=== PATIENT | female | born 1945 | race Caucasian/White ===

== ENCOUNTER 2018-05-10 12:39 | Inpatient (IN) | payer MEDICARE ==
[~2018-05-10] VITALS: Ht 162.6 cm; Wt 72.8 kg
[2018-05-10] MEDS ORDERED: HYDROcodone/APAP 5/325 TABLET ONE ×2 (12:54→17:17)
[2018-05-10] MEDS ORDERED: ONDANSETRON ODT 4 MG ONE (12:55)
[2018-05-10] MEDS ORDERED: ONDANSETRON ODT 4 MG PO ONE (13:00)
[2018-05-10] MEDS ORDERED: HYDROcodone/APAP 5/325 TABLET PO ONE ×2 (13:00→15:00)
[2018-05-10] MEDS ORDERED: DULO30CA2 PO (13:07)
[2018-05-10] MEDS ORDERED: PRED5TAB PO (13:07)
[2018-05-10] MEDS ORDERED: LEVO100T PO (13:07)
[2018-05-10] MEDS ORDERED: OMEP-110 PO (13:07)
[2018-05-10] MEDS ORDERED: PREG25CA PO (13:07)
[2018-05-10 15:31] LABS: BASOPHILS # (AUTO) 0.01 x10^3/uL (0-0.1); BASOPHILS % (AUTO) 0 % (0-1); EOSINOPHILS # (AUTO) 0.11 x10^3/uL (0-0.4); EOSINOPHILS % (AUTO) 2 % (1-7); LYMPHOCYTES # (AUTO) 0.89 x10^3/uL (1-3.4); LYMPHOCYTES % (AUTO) 13 % (22-44); MD NO; MEAN CORPUSCULAR HEMOGLOBIN 22.4 pg (27.0-34.8); MEAN CORPUSCULAR HGB CONC 31.7 g/dL (32.4-35.8); MEAN CORPUSCULAR VOLUME 70.6 fL (80-100); MEAN PLATELET VOLUME 7.8 fL (7.4-10.4); MONOCYTES # (AUTO) 0.31 x10^3/uL (0.2-0.8); MONOCYTES % (AUTO) 4 % (2-9); NEUTROPHILS % (AUTO) 81 % (42-75); PLATELET COUNT 425 x10^3/uL (130-400); RED BLOOD COUNT 4.29 x10^6/uL (3.82-5.3); RED CELL DISTRIBUTION WIDTH 21.2 % (9.6-15.2)
[2018-05-10 15:36] LABS: ANION GAP 10 mmol/L (5-15); CALCIUM 8.6 mg/dL (8.5-10.1); CHLORIDE 105 mmol/L (98-107); CREATININE 0.67 mg/dL (0.55-1.02)
[2018-05-10] MEDS ORDERED: SODIUM CHLORIDE FLUSH 10ML SYR IVF PRN (16:00)
[2018-05-10] MEDS ORDERED: POLYETHYLENE GLYCOL 17 GM PACKET PO PRN (16:30)
[2018-05-10] MEDS ORDERED: ONDANSETRON ODT 4 MG PO PRN (16:30)
[2018-05-10] MEDS ORDERED: ONDANSETRON 2MG/ML, 2ML IVPush PRN (16:30)
[2018-05-10] MEDS ORDERED: LABETALOL 5MG/ML, 20ML IVPush PRN (16:30)
[2018-05-10 17:08] LABS: FREE T4 (FREE THYROXINE) 1.22 ng/dL (0.76-1.46)
[2018-05-10] MEDS ORDERED: ACETAMINOPHEN 325 MG TABLET PO PRN (18:00)
[2018-05-10] MEDS: SODIUM CHLORIDE 0.9% 1,000 ML IV SCH (18:41)
[2018-05-10 19:50] VITALS: BP 149/81
[2018-05-10] MEDS: PREGABALIN 25 MG CAPSULE PO SCH (19:51)
[2018-05-11 00:57] VITALS: BP 147/79
[2018-05-11] MEDS: KETOROLAC 30 MG/1 ML IV PRN (02:21)
[2018-05-11] MEDS: SODIUM CHLORIDE 0.9% 1,000 ML IV SCH ×2 (04:51→21:00)
[2018-05-11 05:59] LABS: BASOPHILS % (AUTO) 0 % (0-1); EOSINOPHILS % (AUTO) 2 % (1-7); LYMPHOCYTES # (AUTO) 0.76 x10^3/uL (1-3.4); LYMPHOCYTES % (AUTO) 12 % (22-44); MD NO; MEAN CORPUSCULAR HEMOGLOBIN 22.7 pg (27.0-34.8); MEAN CORPUSCULAR HGB CONC 31.8 g/dL (32.4-35.8); MEAN CORPUSCULAR VOLUME 71.3 fL (80-100); MEAN PLATELET VOLUME 7.7 fL (7.4-10.4); MONOCYTES # (AUTO) 0.22 x10^3/uL (0.2-0.8); MONOCYTES % (AUTO) 4 % (2-9); NEUTROPHILS # (AUTO) 5.06 x10^3/uL (1.8-6.8); NEUTROPHILS % (AUTO) 82 % (42-75); PLATELET COUNT 367 x10^3/uL (130-400); RED BLOOD COUNT 4.04 x10^6/uL (3.82-5.3); RED CELL DISTRIBUTION WIDTH 20.3 % (9.6-15.2)
[2018-05-11 06:06] LABS: ALANINE AMINOTRANSFERASE 12 U/L (12-78); ALBUMIN 2.2 g/dL (3.4-5.0); ANION GAP 8 mmol/L (5-15); CALCIUM 8.3 mg/dL (8.5-10.1); CHLORIDE 106 mmol/L (98-107)
[2018-05-11 06:08] LABS: ALKALINE PHOSPHATASE 65 U/L (45-117); BILIRUBIN,TOTAL 0.3 mg/dL (0.2-1.0); CREATININE 0.76 mg/dL (0.55-1.02)
[2018-05-11 07:00] VITALS: BP 158/76
[2018-05-11] MEDS: SENNA/DOCUSATE TABLET PO SCH (07:47)
[2018-05-11] MEDS: METHOCARBAMOL 500 MG TABLET PO PRN ×2 (07:53→22:30)
[2018-05-11] MEDS: DULOXETINE 30 MG CAPSULE.DR PO SCH (07:53)
[2018-05-11] MEDS: PREGABALIN 25 MG CAPSULE PO SCH ×3 (07:53→19:37)
[2018-05-11] MEDS: OMEPRAZOLE 20 MG CAPSULE.DR PO SCH (07:54)
[2018-05-11 13:00] VITALS: BP 128/71
[2018-05-11 19:55] VITALS: BP 134/67
[2018-05-11 23:02] LABS: MICROSCOPIC NOT IND
[2018-05-11 23:06] LABS: CULTURE INDICATED? NO
[2018-05-12 02:36] VITALS: BP 129/64
[2018-05-12 06:50] VITALS: BP 152/81
[2018-05-12] MEDS: SENNA/DOCUSATE TABLET PO SCH (08:11)
[2018-05-12] MEDS: OMEPRAZOLE 20 MG CAPSULE.DR PO SCH (08:11)
[2018-05-12] MEDS: DULOXETINE 30 MG CAPSULE.DR PO SCH (08:12)
[2018-05-12] MEDS: KETOROLAC 30 MG/1 ML IV PRN ×3 (08:12→20:39)
[2018-05-12] MEDS: PREGABALIN 25 MG CAPSULE PO SCH ×3 (08:12→20:04)
[2018-05-12] MEDS: METHOCARBAMOL 500 MG TABLET PO PRN ×2 (08:12→16:19)
[2018-05-12 08:46] LABS: MEAN CORPUSCULAR HEMOGLOBIN 21.9 pg (27.0-34.8); MEAN CORPUSCULAR HGB CONC 30.8 g/dL (32.4-35.8); RED BLOOD COUNT 4.51 x10^6/uL (3.82-5.3)
[2018-05-12 08:54] LABS: ALANINE AMINOTRANSFERASE 12 U/L (12-78); ALBUMIN 2.2 g/dL (3.4-5.0); ANION GAP 7 mmol/L (5-15); CALCIUM 8.4 mg/dL (8.5-10.1); CHLORIDE 102 mmol/L (98-107); CREATININE 0.62 mg/dL (0.55-1.02)
[2018-05-12 08:57] LABS: ALKALINE PHOSPHATASE 71 U/L (45-117); BILIRUBIN,TOTAL 0.3 mg/dL (0.2-1.0); TOTAL PROTEIN 7.6 g/dL (6.4-8.2)
[2018-05-12] MEDS: HEPARIN 5,000 UNITS/ML, 1ML SQ SCH ×2 (09:00→16:04)
[2018-05-12 09:04] LABS: MEAN PLATELET VOLUME 7.8 fL (7.4-10.4); PLATELET COUNT 461 x10^3/uL (130-400)
[2018-05-12 09:08] LABS: BASOPHILS % (AUTO) 0 % (0-1); EOSINOPHILS # (AUTO) 0.09 x10^3/uL (0-0.4); EOSINOPHILS % (AUTO) 1 % (1-7); LYMPHOCYTES # (AUTO) 0.75 x10^3/uL (1-3.4); LYMPHOCYTES % (AUTO) 7 % (22-44); MD SCAN; MONOCYTES # (AUTO) 0.26 x10^3/uL (0.2-0.8); MONOCYTES % (AUTO) 2 % (2-9); NEUTROPHILS # (AUTO) 9.55 x10^3/uL (1.8-6.8); NEUTROPHILS % (AUTO) 90 % (42-75)
[2018-05-12] MEDS ORDERED: OMNIPAQUE 350 MG/ML, 100ML BOTTLE ONE (09:42)
[2018-05-12] MEDS ORDERED: HEPARIN 5,000 UNITS/ML, 1ML IV ONE (12:30)
[2018-05-12] MEDS: HEPARIN 25,000 UNITS/500ML PMX 500 ML IV PRN (13:04)
[2018-05-12 14:00] VITALS: BP 188/84
[2018-05-12 15:22] VITALS: BP 150/86
[2018-05-12 18:25] VITALS: BP 166/80
[2018-05-12 19:26] VITALS: BP 158/83
[2018-05-12] MEDS: HEPARIN 5,000 UNITS/ML, 1ML IV PRN (20:02)
[2018-05-13] MEDS: HEPARIN 5,000 UNITS/ML, 1ML SQ SCH ×4 (01:00→23:39)
[2018-05-13 01:15] VITALS: BP 149/78
[2018-05-13] MEDS: METHOCARBAMOL 500 MG TABLET PO PRN ×3 (01:24→20:44)
[2018-05-13] MEDS: HEPARIN 5,000 UNITS/ML, 1ML IV PRN ×4 (02:57→23:30)
[2018-05-13] MEDS: KETOROLAC 30 MG/1 ML IV PRN ×2 (04:05→20:43)
[2018-05-13] MEDS: LEVOTHYROXINE 100 MCG TABLET PO SCH (05:41)
[2018-05-13 06:50] VITALS: BP 154/67
[2018-05-13] MEDS: SENNA/DOCUSATE TABLET PO SCH (07:11)
[2018-05-13 09:09] LABS: BASOPHILS % (AUTO) 0 % (0-1); EOSINOPHILS # (AUTO) 0.08 x10^3/uL (0-0.4); EOSINOPHILS % (AUTO) 1 % (1-7); LYMPHOCYTES # (AUTO) 0.73 x10^3/uL (1-3.4); LYMPHOCYTES % (AUTO) 8 % (22-44); MD NO; MEAN CORPUSCULAR HEMOGLOBIN 21.9 pg (27.0-34.8); MEAN CORPUSCULAR HGB CONC 31.2 g/dL (32.4-35.8); MEAN CORPUSCULAR VOLUME 70.3 fL (80-100); MEAN PLATELET VOLUME 7.6 fL (7.4-10.4); MONOCYTES # (AUTO) 0.18 x10^3/uL (0.2-0.8); MONOCYTES % (AUTO) 2 % (2-9); NEUTROPHILS # (AUTO) 8.54 x10^3/uL (1.8-6.8); NEUTROPHILS % (AUTO) 90 % (42-75); PLATELET COUNT 432 x10^3/uL (130-400); RED BLOOD COUNT 4.59 x10^6/uL (3.82-5.3); RED CELL DISTRIBUTION WIDTH 20.8 % (9.6-15.2)
[2018-05-13 09:13] LABS: ANION GAP 11 mmol/L (5-15); CALCIUM 8.8 mg/dL (8.5-10.1); CHLORIDE 100 mmol/L (98-107); CREATININE 0.64 mg/dL (0.55-1.02)
[2018-05-13] MEDS: PREGABALIN 25 MG CAPSULE PO SCH ×3 (09:39→20:44)
[2018-05-13] MEDS: OMEPRAZOLE 20 MG CAPSULE.DR PO SCH (09:40)
[2018-05-13] MEDS: DULOXETINE 30 MG CAPSULE.DR PO SCH (09:41)
[2018-05-13] MEDS ORDERED: LIDOCAINE-MPF 1%, 5ML ONE (10:06)
[2018-05-13 13:21] LABS: SYN CELLS COUNTED 11050
[2018-05-13 14:30] VITALS: BP 145/76
[2018-05-13] MEDS: HEPARIN 25,000 UNITS/500ML PMX 500 ML IV PRN ×2 (15:00→23:31)
[2018-05-13 19:30] VITALS: BP 162/78
[2018-05-14 00:46] VITALS: BP 123/74
[2018-05-14] MEDS: LEVOTHYROXINE 100 MCG TABLET PO SCH (05:32)
[2018-05-14 07:10] VITALS: BP 129/79
[2018-05-14] MEDS: HEPARIN 5,000 UNITS/ML, 1ML SQ SCH ×2 (07:19→07:20)
[2018-05-14] MEDS: DULOXETINE 30 MG CAPSULE.DR PO SCH (09:05)
[2018-05-14] MEDS: PREGABALIN 25 MG CAPSULE PO SCH ×3 (09:06→21:06)
[2018-05-14] MEDS: OMEPRAZOLE 20 MG CAPSULE.DR PO SCH (09:06)
[2018-05-14] MEDS: SENNA/DOCUSATE TABLET PO SCH (09:06)
[2018-05-14] MEDS: KETOROLAC 30 MG/1 ML IV PRN (11:39)
[2018-05-14] MEDS: RIVAROXABAN 15 MG TABLET PO SCH ×2 (11:39→17:57)
[2018-05-14] MEDS ORDERED: RIVA15TA PO (13:54)
[2018-05-14] MEDS ORDERED: PRED5TAB PO (13:54)
[2018-05-14 14:13] VITALS: BP 117/68
[2018-05-14 19:19] VITALS: BP 130/73
[2018-05-15 02:38] VITALS: BP 148/78
[2018-05-15] MEDS: LEVOTHYROXINE 100 MCG TABLET PO SCH (04:42)
[2018-05-15 06:52] VITALS: BP 145/76
[2018-05-15] MEDS: RIVAROXABAN 15 MG TABLET PO SCH ×2 (09:09→15:48)
[2018-05-15] MEDS: SENNA/DOCUSATE TABLET PO SCH (09:10)
[2018-05-15] MEDS: PREGABALIN 25 MG CAPSULE PO SCH ×2 (09:10→15:48)
[2018-05-15] MEDS: DULOXETINE 30 MG CAPSULE.DR PO SCH (09:10)
[2018-05-15] MEDS: OMEPRAZOLE 20 MG CAPSULE.DR PO SCH (09:10)
[2018-05-15 12:17] VITALS: BP 143/74
[2018-06-04] MEDS ORDERED: RIVAROXABAN 20 MG TABLET PO SCH (09:00)
== END 2018-05-15 17:19 | DRG 564 ==
LOC: ED 15:37 → EDIP 15:53 → 3NE 18:02
PROVIDERS: ADMIT Hospitalist; ATTEND Hospitalist
PROC: 0S9C3ZZ Drainage of Right Knee Joint, Percutaneous Approach (ICD-10-PCS; principal; 2018-05-13)
DX: M25.461 Effusion, right knee (principal); I26.99 Other pulmonary embolism without acute cor pulmonale; J96.01 Acute respiratory failure with hypoxia; E87.1 Hypo-osmolality and hyponatremia; M48.54XA Collapsed vertebra, not elsewhere classified, thoracic region, initial encounter for fracture; E44.0 Moderate protein-calorie malnutrition; G89.29 Other chronic pain; Z88.8 Allergy status to other drugs, medicaments and biological substances; D50.0 Iron deficiency anemia secondary to blood loss (chronic); H81.09 Meniere's disease, unspecified ear; K21.9 Gastro-esophageal reflux disease without esophagitis; R62.7 Adult failure to thrive; S40.019A Contusion of unspecified shoulder, initial encounter; W18.39XA Other fall on same level, initial encounter; Y93.89 Activity, other specified; Y92.89 Other specified places as the place of occurrence of the external cause; Y99.8 Other external cause status; F32.9 Major depressive disorder, single episode, unspecified; M19.90 Unspecified osteoarthritis, unspecified site; S83.91XA Sprain of unspecified site of right knee, initial encounter; Z90.710 Acquired absence of both cervix and uterus; Z82.49 Family history of ischemic heart disease and other diseases of the circulatory system; Z80.9 Family history of malignant neoplasm, unspecified
CPT/HCPCS: 36415; 71045; 71250; 71275; 77002; 80048; 80053; 81003; 83735; 84100; 84439; 84443; 85025; 85379; 85520; 85810; 89050; 89060; 93005; 93306; 99285; G0378; J1644; J1885; Q0162; Q9967; J7030; J7512

== ENCOUNTER 2018-06-20 05:40 | Day surgery (SDC) | payer MEDICARE ==
[~2018-06-20] VITALS: Ht 162.6 cm; Wt 66.2 kg
[~2018-06-20 05:40] MED LIST: DULO30CA2 PO; LEVO100T PO; OMEP-110 PO; PRED5TAB PO; PREG25CA PO; RIVA15TA PO
[2018-06-20] MEDS ORDERED: BUPIVACAINE/PF-EPI 0.5% 1:200K ONE (06:48)
[2018-06-20 06:59] VITALS: BP 130/80
[2018-06-20] MEDS ORDERED: DEXAMETHASONE 4 MG/ML, 1ML IV PRN (07:00)
[2018-06-20] MEDS ORDERED: MIDAZOLAM 1 MG/ML, 2ML IV PRN (07:00)
[2018-06-20] MEDS ORDERED: EPHEDRINE 50 MG/ML, 1ML IM PRN (07:00)
[2018-06-20] MEDS ORDERED: OXYcodone 5 MG/5 ML ORAL.SOL UDC PO PRN (07:00)
[2018-06-20] MEDS ORDERED: HYDROmorphone 2 MG/ML, 1ML IVPush PRN (07:00)
[2018-06-20] MEDS ORDERED: FENTANYL PF 100 MCG/2ML IV PRN (07:00)
[2018-06-20] MEDS ORDERED: HYDROcodone/APAP 7.5-325MG/15ML UDC PO PRN (07:00)
[2018-06-20] MEDS ORDERED: ONDANSETRON 2MG/ML, 2ML IV PRN (07:00)
[2018-06-20] MEDS ORDERED: ALBUTEROL SULFATE 2.5 MG/3 ML NPPB PRN (07:00)
[2018-06-20] MEDS ORDERED: LABETALOL 5MG/ML, 20ML IV PRN (07:00)
[2018-06-20] MEDS ORDERED: KETOROLAC 30 MG/1 ML IV PRN (07:00)
[2018-06-20] MEDS ORDERED: hydrALAzine 20 MG/ML, 1ML IV PRN (07:00)
[2018-06-20] MEDS ORDERED: LIDOCAINE/PF 1%, 30ML ONE (07:02)
[2018-06-20] MEDS ORDERED: LIDOCAINE-MPF 2% ,5ML ONE ×2 (07:03→07:06)
[2018-06-20] MEDS ORDERED: MIDAZOLAM 1 MG/ML, 2ML ONE (07:06)
[2018-06-20] MEDS ORDERED: PROPOFOL 10 MG/ML, 20ML ONE (07:06)
[2018-06-20] MEDS ORDERED: DEXAMETHASONE 4 MG/ML, 1ML ONE (07:06)
[2018-06-20] MEDS ORDERED: ROCURONIUM 10MG/ML,5ML ONE (07:06)
[2018-06-20] MEDS ORDERED: GLYCOPYRROLATE 0.2MG/1ML, 5ML ONE (07:06)
[2018-06-20] MEDS ORDERED: FENTANYL PF 250 MCG/5ML ONE (07:07)
[2018-06-20] MEDS ORDERED: PHENYLEPHRINE 10 MG/ML ONE (08:06)
[2018-06-20] MEDS ORDERED: LABETALOL 20 MG/4 ML ONE (08:06)
[2018-06-20] MEDS ORDERED: OMNIPAQUE 180 MG/ML, 20ML VIAL IT ONE (08:20)
[2018-06-20] MEDS ORDERED: FENTANYL PF 100 MCG/2ML ONE (09:45)
[2018-06-20] MEDS ORDERED: OXYcodone 5 MG/5 ML ORAL.SOL UDC ONE (10:18)
== END 2018-06-20 15:40 | disposition home or self-care (01) ==
LOC: OUT 05:40
PROVIDERS: ATTEND Neurological Surgery
DX: M80.08XA Age-related osteoporosis with current pathological fracture, vertebra(e), initial encounter for fracture (principal); J43.9 Emphysema, unspecified; I10 Essential (primary) hypertension; Z98.890 Other specified postprocedural states; Z72.89 Other problems related to lifestyle
CPT/HCPCS: 22513; 22515; 36415; 72072; 72100; 85730; 86850; 86900; 88307; 88311; 93005; C1713; J1100; J2250; J2370; J2704; J3010; J3490; Q9965

== ENCOUNTER 2018-12-26 10:16 | Outpatient (CLI) | payer MEDICARE ==
[2018-12-26 11:25] LABS: MEAN CORPUSCULAR VOLUME 77.6 fL (80-100); MEAN PLATELET VOLUME 8.7 fL (7.4-10.4); PLATELET COUNT 336 x10^3/uL (130-400); RED BLOOD COUNT 5.33 x10^6/uL (3.82-5.3); RED CELL DISTRIBUTION WIDTH 29.6 % (9.6-15.2)
[2018-12-26 11:32] LABS: INTERNATIONAL NORMALIZED RATIO 1.02 (0.93-1.1); PROTHROMBIN TIME 10.7 Seconds (9.6-11.5)
[2018-12-26 11:33] LABS: ALANINE AMINOTRANSFERASE 11 U/L (12-78); ALBUMIN 3.9 g/dL (3.4-5.0); ANION GAP 7 mmol/L (5-15); CALCIUM 9.5 mg/dL (8.5-10.1); CHLORIDE 105 mmol/L (98-107); CREATININE 0.97 mg/dL (0.55-1.02)
[2018-12-26 11:36] LABS: ALKALINE PHOSPHATASE 79 U/L (45-117); BILIRUBIN,TOTAL 0.3 mg/dL (0.2-1.0)
[2018-12-26 11:45] LABS: BASOPHILS # (AUTO) 0.02 x10^3/uL (0-0.1); BASOPHILS % (AUTO) 0 % (0-1); EOSINOPHILS # (AUTO) 0.14 x10^3/uL (0-0.4); EOSINOPHILS % (AUTO) 3 % (1-7); LYMPHOCYTES # (AUTO) 0.99 x10^3/uL (1-3.4); LYMPHOCYTES % (AUTO) 18 % (22-44); MD MORPH REVIEW ONLY; MONOCYTES % (AUTO) 7 % (2-9); NEUTROPHILS # (AUTO) 3.96 x10^3/uL (1.8-6.8); NEUTROPHILS % (AUTO) 72 % (42-75)
[2018-12-26 11:48] LABS: ANISOCYTOSIS 2+; HYPOCHROMIA 1+; MICROCYTOSIS 1+; OVALOCYTES 1+; POLYCHROMASIA 1+
[2018-12-26 11:50] LABS: <PLATELET ESTIMATE> ADEQUATE; <PLT MORPHOLOGY> NORMAL PLT MORPH; SPHEROCYTES 1+
[2018-12-26] MEDS ORDERED: CALC-39 PO (11:51)
[2018-12-26] MEDS ORDERED: DULO30CA2 PO (11:51)
[2018-12-26] MEDS ORDERED: FERR324T5 PO (11:51)
[2018-12-26] MEDS ORDERED: LEVO112T4 PO (11:51)
[2018-12-26] MEDS ORDERED: ALEN70TA6 PO (11:51)
[2018-12-26] MEDS ORDERED: ACET-1600 PO (11:51)
== END 2018-12-26 23:59 | disposition home or self-care (01) ==
LOC: STAR 10:16
PROVIDERS: ATTEND Neurological Surgery
DX: Z01.818 Encounter for other preprocedural examination (principal); S32.010G Wedge compression fracture of first lumbar vertebra, subsequent encounter for fracture with delayed healing; R94.31 Abnormal electrocardiogram [ECG] [EKG]; E03.9 Hypothyroidism, unspecified; R79.1 Abnormal coagulation profile; X58.XXXD Exposure to other specified factors, subsequent encounter
CPT/HCPCS: 36415; 80053; 85025; 85610; 85730; 93005

== ENCOUNTER 2019-01-07 05:28 | Day surgery (SDC) | payer MEDICARE ==
[2018-12-26 11:32] VITALS: BP 156/85
[~2019-01-07] VITALS: Ht 157.5 cm; Wt 65.4 kg
[~2019-01-07 05:28] MED LIST changes: +ACET-1600 PO; +ALEN70TA6 PO; +CALC-39 PO; +FERR324T5 PO; +LEVO112T4 PO
[2019-01-07] MEDS ORDERED: LACTATED RINGERS 1,000 ML IV SCH (06:27)
[2019-01-07] MEDS ORDERED: OMEP10CA4 PO (06:33)
[2019-01-07 06:34] VITALS: BP 156/85
[2019-01-07] MEDS ORDERED: FENTANYL PF 250 MCG/5ML ONE (06:40)
[2019-01-07] MEDS ORDERED: PHENYLEPHRINE 10 MG/ML ONE (06:44)
[2019-01-07] MEDS ORDERED: ONDANSETRON 2MG/ML, 2ML ONE (06:48)
[2019-01-07] MEDS ORDERED: PROPOFOL 10 MG/ML, 20ML ONE (06:48)
[2019-01-07] MEDS ORDERED: GLYCOPYRROLATE 0.2MG/1ML, 5ML ONE (06:48)
[2019-01-07] MEDS ORDERED: CEFAZOLIN 1,000 MG ONE (06:48)
[2019-01-07] MEDS ORDERED: ROCURONIUM 10MG/ML,5ML ONE (06:48)
[2019-01-07] MEDS ORDERED: NEOSTIGMINE 1 MG/ML, 10ML ONE (06:48)
[2019-01-07] MEDS ORDERED: DEXAMETHASONE 4 MG/ML, 1ML ONE (06:48)
[2019-01-07] MEDS ORDERED: BUPIVACAINE/EPI 0.5% 1:200K ONE (06:53)
[2019-01-07] MEDS ORDERED: ACETAMINOPHEN 500 MG TABLET PO ONE (07:00)
[2019-01-07] MEDS ORDERED: GABAPENTIN 300 MG CAPSULE PO ONE (07:00)
[2019-01-07] MEDS ORDERED: ONDANSETRON ODT 8 MG PO PRN (07:30)
[2019-01-07] MEDS ORDERED: OXYcodone 5 MG/5 ML ORAL.SOL UDC PO PRN (07:30)
[2019-01-07] MEDS ORDERED: FENTANYL PF 100 MCG/2ML IV PRN (07:30)
[2019-01-07] MEDS ORDERED: HALOPERIDOL 5 MG/ML IV PRN (07:30)
[2019-01-07] MEDS ORDERED: HYDROmorphone 2 MG/ML, 1ML IVPush PRN (07:30)
[2019-01-07] MEDS ORDERED: ONDANSETRON 2MG/ML, 2ML IV PRN (07:30)
[2019-01-07] MEDS ORDERED: LABETALOL 5MG/ML, 20ML IV PRN (07:30)
[2019-01-07] MEDS ORDERED: PROMETHAZINE 12.5 MG SUPP PR PRN (07:30)
[2019-01-07] MEDS ORDERED: PROMETHAZINE 25 MG/ML, 1ML IV PRN (07:30)
[2019-01-07] MEDS ORDERED: hydrALAzine 20 MG/ML, 1ML IV PRN (07:30)
[2019-01-07] MEDS ORDERED: PROMETHAZINE 25 MG SUPP PR PRN (07:30)
[2019-01-07] MEDS ORDERED: PROMETHAZINE 25 MG/ML, 1ML IM PRN ×2 (07:30)
[2019-01-07] MEDS ORDERED: MORPHINE SULFATE 4 MG/ML, 1ML IVPush PRN (07:30)
[2019-01-07] MEDS ORDERED: OMNIPAQUE 180 MG/ML, 20ML VIAL IT ONE (08:33)
[2019-01-07] MEDS ORDERED: OMNIPAQUE 180 MG/ML, 20ML VIAL ONE (09:27)
== END 2019-01-07 14:00 | disposition home or self-care (01) ==
LOC: OUT 05:28
PROVIDERS: ATTEND Neurological Surgery
DX: M80.88XA Other osteoporosis with current pathological fracture, vertebra(e), initial encounter for fracture (principal); J43.9 Emphysema, unspecified; K21.9 Gastro-esophageal reflux disease without esophagitis; Z88.8 Allergy status to other drugs, medicaments and biological substances; Z72.89 Other problems related to lifestyle
CPT/HCPCS: 22514; 36415; 72100; 86850; 86900; 88307; 88311; C1713; J0690; J1100; J2370; J2405; J2704; J2710; J3010; J7120; Q9965

== ENCOUNTER 2020-07-07 12:04 | Observation (INO) | payer MEDICARE ==
[~2020-07-07] VITALS: Ht 160 cm; Wt 54.9 kg
[~2020-07-07 12:04] MED LIST changes: +ACYC-114 PO; -ALEN70TA6 PO; +ALEN70TA77 PO; +AMOX1TAB12 PO; +BRIMONIDINE 0.15% LEFTEYE; +CALA118S2 TP; +CEFD300C37 PO; +CYCL2DRO5 LEFTEYE; +DORZ10DR26 LEFTEYE; +DULO60CA56 PO; +FERR325T16 PO; +LEVO150T PO; +LEVO25TA4 PO; +LISI-167 PO; +MELO15TA24 PO; +MIRT-34 PO; +OMEP10CA5 PO; +PEG15DRO4 EACHEYE; +PRED5DRO15 LEFTEYE; +PREG300C PO; +TRAM50TA2 PO; +Timolol Ophth 0.25%, 5ML OP; +UPAD15TA PO
--- NOTE | 2020-07-07 12:05 | NUR ---
PATIENT BIB EMS FROM [facility] COMPLAINING OF 8/10 LEFT SIDED FACIAL PAIN AND AN EPISODE OF CHEST PAIN EARLIER TODAY THAT RADIATED DOWN THE LEFT ARM AND MADE HER NAUSEATED. SHE WAS DX WITH SHINGLES AND UTI 3 WEEKS AGO. SHE IS NOT COMPLAINING OF THE CHEST PAIN NOW. 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 CALL LIGHT WITHIN REACH. NO ADDITIONAL NEEDS VERBALIZED AT THIS TIME.
[2020-07-07] MEDS ORDERED: ASPIRIN 81 MG TABLET CHEW PO ONE (12:30)
[2020-07-07] MEDS ORDERED: SODIUM CHLORIDE FLUSH 10ML SYR IVF ONE (12:30)
[2020-07-07 12:58] LABS: BASOPHILS % (AUTO) 1 % (0-1); EOSINOPHILS % (AUTO) 2 % (1-7); LYMPHOCYTES % (AUTO) 13 % (22-44); MEAN CORPUSCULAR HEMOGLOBIN 28.8 pg (27.0-34.8); MEAN CORPUSCULAR HGB CONC 32.9 g/dL (32.4-35.8); MEAN PLATELET VOLUME 7.7 fL (7.4-10.4); MONOCYTES % (AUTO) 9 % (2-9); NEUTROPHILS % (AUTO) 77 % (42-75); PLATELET COUNT 298 x10^3/uL (130-400); RED BLOOD COUNT 4.35 x10^6/uL (3.82-5.3); RED CELL DISTRIBUTION WIDTH 16.5 % (9.6-15.2)
[2020-07-07] MEDS ORDERED: PROPARACAINE OPHTH 0.5%, 15ML LEFTEYE ONE (13:00)
[2020-07-07] MEDS ORDERED: FLUORESCEIN OPHTHALMIC 1 MG STRIP LEFTEYE ONE (13:00)
[2020-07-07 13:06] LABS: MD NO
[2020-07-07 13:10] LABS: ALANINE AMINOTRANSFERASE 13 U/L (12-78); ALBUMIN 3.4 g/dL (3.4-5.0); ANION GAP 5 mmol/L (5-15); CALCIUM 9.5 mg/dL (8.5-10.1); CHLORIDE 105 mmol/L (98-107); CREATININE 0.83 mg/dL (0.55-1.02); INTERNATIONAL NORMALIZED RATIO 1.02 (0.93-1.1); PROTHROMBIN TIME 10.8 Seconds (9.6-11.5)
[2020-07-07 13:14] LABS: ALKALINE PHOSPHATASE 80 U/L (45-117); BILIRUBIN,TOTAL 0.3 mg/dL (0.2-1.0); TOTAL PROTEIN 7.4 g/dL (6.4-8.2); TROPONIN I < 0.015 ng/mL (0.000-0.045)
[2020-07-07] MEDS ORDERED: FLUORESCEIN OPHTHALMIC 1 MG STRIP ONE (13:16)
[2020-07-07] MEDS ORDERED: ASPIRIN 81 MG TABLET CHEW ONE (13:16)
[2020-07-07] MEDS ORDERED: PROPARACAINE OPHTH 0.5%, 15ML ONE (13:17)
--- NOTE | 2020-07-07 14:34 | NUR ---
PT MEDICATED FOR 8/10 PAIN ORDERED. PO FLUIDS AND MAHI CRACKERS AT BEDSIDE. MEAL TRAY REQUESTED FROM DIETARY. PT WITH WET BRIEF. ASSIST WITH ARON CARE. CLEAN BRIEF PLACED ON PT, PER PT REQUEST. SR PER MONITOR. NO C/O CP OFFERED. ONGOING C/O FACIAL PAIN. WAITING FOR ROOM ASSIGNMENT. PT UNABLE TO VERBALIZE HOME MEDICATIONS. "MY DAUGHTER ROX KNOWS"
[2020-07-07] MEDS ORDERED: OMEP-110 PO (14:57)
--- NOTE | 2020-07-07 15:54 | NUR ---
REPORT TO RADHA KEEN.
[2020-07-07] MEDS ORDERED: NITROGLYCERIN 0.4 MG/SPRAY SL PRN (16:00)
[2020-07-07] MEDS ORDERED: NITROGLYCERIN 0.4 MG BOTTLE (25 TABS) SL PRN (16:00)
[2020-07-07] MEDS ORDERED: ASPIRIN 325 MG TABLET EC PO ONE (16:00)
[2020-07-07] MEDS ORDERED: DIPHENHYDRAMINE 25 MG CAPSULE ONE (16:10)
[2020-07-07] MEDS: DIPHENHYDRAMINE 25 MG CAPSULE PO PRN ×2 (16:13→19:53)
--- NOTE | 2020-07-07 16:15 | NUR ---
PATIENT COMPLAINING OF ITCHING ON LEFT SIDE OF FACE. PROVIDER NOTIFIED. MEDICATED PER EMAR.
[2020-07-07 16:39] LABS: CHOLESTEROL, TOTAL 175 mg/dL (140-239)
[2020-07-07 16:43] LABS: CHOL/HDL RATIO 3.4; HDL CHOL % 29 % (28-40); HDL CHOLESTEROL (DIRECT) 51 mg/dL (40-60); LDL CHOLESTEROL,CALCULATED 107 mg/dL (54-169); LDL/HDL RATIO 2.1 (0.5-3.0); TRIGLYCERIDES 84 mg/dL (50-200); TROPONIN I < 0.015 ng/mL (0.000-0.045); VLDL CHOLESTEROL 17 mg/dL (0-25)
[2020-07-07 17:20] VITALS: BP 179/94
[2020-07-07] MEDS: HEPARIN 5,000 UNITS/ML, 1ML SQ SCH ×2 (17:41→23:04)
[2020-07-07] MEDS: OXYcodone IR 5MG TABLET PO PRN ×2 (18:09→19:53)
[2020-07-07 18:33] VITALS: BP 159/95
[2020-07-07 19:27] LABS: TROPONIN I < 0.015 ng/mL (0.000-0.045)
[2020-07-07] MEDS: OMEPRAZOLE 20 MG CAPSULE.DR PO SCH (19:53)
[2020-07-07] MEDS: SODIUM CHLORIDE FLUSH 10ML SYR IVF SCH (20:47)
[2020-07-07] MEDS ORDERED: UPADACITINIB PO SCH (21:00)
[2020-07-07] MEDS ORDERED: GABAPENTIN 300 MG CAPSULE PO PRN (22:30)
[2020-07-07] MEDS ORDERED: OMNIPAQUE 350 MG/ML, 100ML BOTTLE ONE (23:37)
[2020-07-08] MEDS ORDERED: DIPHENHYDRAMINE 50 MG/ML, 1ML ONE (00:17)
[2020-07-08] MEDS: OXYcodone IR 5MG TABLET PO PRN ×3 (00:21→14:56)
[2020-07-08 00:23] VITALS: BP 154/82
[2020-07-08] MEDS ORDERED: DIPHENHYDRAMINE 50 MG/ML, 1ML IVPush ONE (00:30)
[2020-07-08 05:41] LABS: MEAN CORPUSCULAR HEMOGLOBIN 28.4 pg (27.0-34.8); MEAN CORPUSCULAR HGB CONC 32.9 g/dL (32.4-35.8); MEAN PLATELET VOLUME 7.6 fL (7.4-10.4); PLATELET COUNT 307 x10^3/uL (130-400); RED BLOOD COUNT 4.38 x10^6/uL (3.82-5.3); RED CELL DISTRIBUTION WIDTH 16.8 % (9.6-15.2)
[2020-07-08 05:47] LABS: ANION GAP 6 mmol/L (5-15); CALCIUM 9.4 mg/dL (8.5-10.1); CHLORIDE 107 mmol/L (98-107)
[2020-07-08 05:48] LABS: CREATININE 0.95 mg/dL (0.55-1.02)
[2020-07-08] MEDS ORDERED: LEVOTHYROXINE 150 MCG TABLET PO SCH (06:00)
[2020-07-08] MEDS ORDERED: ASPIRIN 325 MG TABLET EC PO SCH (06:00)
[2020-07-08 07:37] VITALS: BP 136/81
[2020-07-08] MEDS ORDERED: REGADENOSON 0.4 MG/5 ML SYRINGE ONE (08:36)
[2020-07-08] MEDS: HEPARIN 5,000 UNITS/ML, 1ML SQ SCH ×2 (08:40→16:46)
[2020-07-08] MEDS: OMEPRAZOLE 20 MG CAPSULE.DR PO SCH ×2 (08:40→16:46)
[2020-07-08] MEDS: SODIUM CHLORIDE FLUSH 10ML SYR IVF SCH (08:41)
[2020-07-08] MEDS ORDERED: DULOXETINE 30 MG CAPSULE.DR PO SCH (09:00)
[2020-07-08] MEDS ORDERED: MEDROL 4MG DOSEPAK PO SCH ×2 (11:00→11:09)
[2020-07-08] MEDS ORDERED: AMINOPHYLLINE 25 MG/ML, 10ML ONE (12:37)
[2020-07-08] MEDS ORDERED: METH4TAB2 PO (15:06)
[2020-07-08] MEDS ORDERED: GABA300C PO ×2 (15:06)
[2020-07-08] MEDS ORDERED: PREG25CA PO (15:51)
== END 2020-07-08 17:01 | disposition home or self-care (01) ==
LOC: ED 13:27 → INTOOBSV 14:13 → EDIP 14:13 → 4WST 16:49
PROVIDERS: ADMIT Family Medicine; ATTEND Family Medicine
DX: R07.89 Other chest pain (principal); Z20.828 Contact with and (suspected) exposure to other viral communicable diseases; R51.9 Headache, unspecified; H57.12 Ocular pain, left eye; B02.29 Other postherpetic nervous system involvement; G89.29 Other chronic pain; M06.9 Rheumatoid arthritis, unspecified; E03.9 Hypothyroidism, unspecified; I10 Essential (primary) hypertension; K21.9 Gastro-esophageal reflux disease without esophagitis; F32.9 Major depressive disorder, single episode, unspecified; H81.09 Meniere's disease, unspecified ear; Z87.311 Personal history of (healed) other pathological fracture; Z86.711 Personal history of pulmonary embolism; Z79.899 Other long term (current) drug therapy; Z90.710 Acquired absence of both cervix and uterus
CPT/HCPCS: 36415; 70450; 71045; 71275; 78452; 80048; 80053; 80061; 84484; 85025; 85027; 85610; 85730; 87635; 93005; 93017; 96372; 96374; 99285; A9502; G0378; J0280; J1200; J1644; J2785; J7509; Q0163; Q9967; U0003

== ENCOUNTER 2021-01-05 16:09 | Emergency (ER) | payer MEDICARE ==
[~2021-01-05] VITALS: Ht 162.6 cm; Wt 55.0 kg
[~2021-01-05 16:09] MED LIST changes: -ACYC-114 PO; +ACYC-40 PO; +FERR324T23 PO; -FERR325T16 PO; +GABA300C PO; +METH4TAB2 PO; +MIRT-14 PO; -MIRT-34 PO
[2021-01-05 17:56] LABS: BASOPHILS % (AUTO) 1 % (0-1); EOSINOPHILS % (AUTO) 2 % (1-7); LYMPHOCYTES % (AUTO) 20 % (22-44); MEAN CORPUSCULAR HEMOGLOBIN 27.3 pg (27.0-34.8); MEAN CORPUSCULAR HGB CONC 32.6 g/dL (32.4-35.8); MEAN PLATELET VOLUME 7.7 fL (7.4-10.4); MONOCYTES % (AUTO) 6 % (2-9); NEUTROPHILS % (AUTO) 71 % (42-75); PLATELET COUNT 368 x10^3/uL (130-400); RED BLOOD COUNT 4.47 x10^6/uL (3.82-5.3); RED CELL DISTRIBUTION WIDTH 16.8 % (9.6-15.2)
[2021-01-05 18:06] LABS: ALBUMIN 3.3 g/dL (3.4-5.0); ANION GAP 5 mmol/L (5-15); CALCIUM 9.2 mg/dL (8.5-10.1); CHLORIDE 103 mmol/L (98-107); CREATININE 0.79 mg/dL (0.55-1.02)
[2021-01-05 18:11] LABS: TROPONIN I < 0.015 ng/mL (0.000-0.045)
[2021-01-05 18:22] VITALS: BP 168/85
[2021-01-05 18:41] LABS: MICROSCOPIC INDICATED
--- NOTE | 2021-01-05 18:53 | NUR ---
ALL RESULTS ARE BACK AT THIS TIME. CHART UP FOR RECHECK.
--- NOTE | 2021-01-05 19:02 | NUR ---
PT AMBULATED HALLWAY WITH STEADY GAIT, HOLDING THIS RN HAND. PT STATES SHE USUALLY USES A WALKER, WHICH DID NOT COME WITH HER. PT STATES SHE CAN TAKE A [facility] HOME AND THE [facility] WILL COL[facility] HER FROM THE [facility].
--- NOTE | 2021-01-05 19:57 | NUR ---
PT WHEELED TO [facility] EDITOR PRODUCER TO ASSIST PT INTO [facility] FOR [facility].
== END 2021-01-05 20:00 | disposition home or self-care (01) ==
LOC: ED 19:30
DX: R07.89 Other chest pain (principal); M79.671 Pain in right foot; M79.672 Pain in left foot; I10 Essential (primary) hypertension; K21.9 Gastro-esophageal reflux disease without esophagitis; M19.90 Unspecified osteoarthritis, unspecified site
CPT/HCPCS: 36415; 71045; 80048; 81001; 82040; 84484; 85025; 93005; 99285